=== PATIENT | female | born 1960 | race Caucasian/White ===

== ENCOUNTER 2019-06-24 13:21 | Emergency (ER) | payer BC, SELFPAY ==
[2019-06-24 13:30] VITALS: BP 114/82; PULSE 77; RESP 19; TEMP 37.8; O2SAT 100
--- NOTE | 2019-06-24 14:20 | ED.GENADULT ---
HPI - General Adult General Chief complaint: Abdominal Pain Stated complaint: ABD PAIN/NAUSEA Time Seen by Provider: 06/24/19 14:20 Source: patient and RN notes reviewed Mode of arrival: ambulatory Limitations: no limitations History of Present Illness HPI narrative: 58-year-old female presents with a complaints of epigastric abdominal pain and nausea for 4 weeks. Increase pain over the last 24 hours. Jackie says she was on 20mg of Leflunomide and her PMD believes this caused her pain in which has since been stopped for 2 weeks but pain continues. Zofran and Tums last this morning at 08:00 with little relief. Complains of nausea without vomiting or diarrhea. No cough or shortness of breath. Denies hematuria, dysuria, blood in stool, and constipation. Last BM was this a.m. No fever or chills. Exacerbating factors consist of certain medications and foods. Denies back pain. Denies headache and dizziness. Jackie denies being , postmenopausal. Has an appointment for further evaluation of abdominal pain with PMD on 06/29/19 per Jackie. Some parts of this dictation were generated by voice recognition software and may contain typographical and/or grammatical inaccuracies. Related Data Home Medications Medication Instructions Recorded Confirmed atenolol 25 mg PO DAILY 06/24/19 06/24/19 cholestyramine (with sugar) 4 g PO DIRECTED 06/24/19 06/24/19 clonazepam 1 mg PO DIRECTED 06/24/19 06/24/19 folic acid 1 mg PO DAILY 06/24/19 06/24/19 methotrexate sodium 2.5 mg PO DAILY 06/24/19 06/24/19 ondansetron HCl 4 mg PO DAILY 06/24/19 06/24/19 quetiapine 25 mg PO DAILY 06/24/19 06/24/19 sertraline 100 mg PO DAILY 06/24/19 06/24/19 Allergies Allergy/AdvReac Type Severity Reaction Status Date / Time ephedrine Allergy Unknown EXTREME Unverified 10/31/13 16:31 AGGITATION metoclopramide Allergy Unknown EXTREME Unverified 10/31/13 16:31 AGGITATION prochlorperazine Allergy Unknown EXTREME Unverified 10/31/13 16:31 AGGITATION Review of Systems Review of Systems: Narrative: CONSTITUTIONAL: Denies fever, chills, sweats. EYES: Denies visual changes, redness, discharge. ENT: Denies rhinorrhea, congestion, sore throat, otalgia. CARDIOVASCULAR: Denies chest pain, palpitations, edema. RESPIRATORY: Denies dyspnea, wheezing, cough. GASTROINTESTINAL: Complains of epigastric abdominal pain, nausea. Denies vomiting, diarrhea. GENITOURINARY: Denies dysuria, hematuria, abnormal discharge. SKIN: Denies rash or itching. MUSCULOSKELETAL: Denies acute back pain, joint pain, or myalgia. NEUROLOGIC: Denies numbness or focal weakness. PSYCHIATRIC: Denies anxiety or depression. All other systems reviewed are negative, except as documented in HPI and below. [facility] Past Medical History Medical History (Updated 06/25/19 @ 00:00 by Amy Perez) Arthritis Depression Hypertension Surgical History Surgical History (Updated 06/24/19 @ 14:34 by SOUMYA Jimenez) H/O section History of pubovaginal sling Hx of sinus surgery Family History Family History (Updated 06/24/19 @ 14:34 by SOUMYA Jimenez) Other No significant family history Social History Social History (Updated 06/24/19 @ 14:35 by SOUMYA Jimenez) Smoking status: Never smoker Second hand tobacco smoke exposure: No Alcohol intake: never Substance use: never Living arrangements: with family Occupation/Education: occupation Gender identity (if verbalized by the patient): Female Comments At time of signature, agree with nurse past medical, surgical, social, and family history. There is no relevant family history pertinent to the presenting complaint. Exam Narrative: Exam Narrative: GENERAL: This is a well-nourished, well-developed patient, in no apparent distress. Talks in full sentences without deficits and ambulates with steady gait without dyspnea. HEAD: normocephalic, atraumatic. EYES: PERRL.
[2019-06-24] MEDS: LIDOCAINE HCL 2% VISC SOLN 15 ML UDC PO (14:38)
[2019-06-24] MEDS: KETOROLAC (*BKC) 60 MG/2 ML VIAL IM (14:38)
[2019-06-24] MEDS: ONDANSETRON HCL ODT 4 MG TABLET PO (14:39)
== END 2019-06-24 15:05 | disposition home or self-care (01) ==
PROVIDERS: Emergency Provider Nurse Practitioner Family; PCP Nurse Practitioner Family
DX: R10.13 Epigastric pain (principal); K52.9 Noninfective gastroenteritis and colitis, unspecified; F41.9 Anxiety disorder, unspecified; F32.9 Major depressive disorder, single episode, unspecified; I10 Essential (primary) hypertension
CPT/HCPCS: 96372; 99213; A9270; G0463; J1885

== ENCOUNTER → 2019-07-03 13:21 | Outpatient (CLI) | payer BC, SELFPAY ==
--- NOTE | ~2019-07-03 | CT_ITS ---
EXAMINATION: CT abdomen pelvis w con DATE: 07/03/2019 13:50 INDICATION: Epigastric abdominal pain, left upper quadrant abdominal pain, nausea TECHNIQUE: Computed tomography (CT) of the abdomen and pelvis was performed with 100 cc Omnipaque 350 intravenous contrast. Automated exposure control and iterative reconstruction technique were employe d. Exam dose: 848.56 mGy-cm total exam DLP. COMPARISON: None. FINDINGS: Normal heart size. No pericardial or pleural effusion. The lung bases are clear. The liver, gallbladder, bile ducts, spleen, pancreas, pancreatic duct, and adrenal glands and kidneys are normal. Normal caliber abdominal aorta. No intraperitoneal or retroperitoneal or pelvic mass lesion or adenopathy or ascites. Uterus and adnexal areas and urinary bladder are unremarkable. No bowel obstruction or intraperitoneal free air. IMPRESSION: No significant abnormality Reviewed, dictated and finalized at [facility]. Reviewed, dictated and finalized at [facility]. IMPRESSION: No significant abnormality
[2019-07-03 13:40] LABS: Estimated Glomerular Filt Rate > 60
== END ==
PROVIDERS: PCP Student in an Organized Health Care Education/Training Program; Visit Provider Student in an Organized Health Care Education/Training Program
DX: R10.13 Epigastric pain (principal)
CPT/HCPCS: 36415; 74177; Q9967

== ENCOUNTER 2020-01-31 00:54 | Outpatient (CLI) | payer BC, SELFPAY ==
[2020-01-31 19:19] LABS: SARS-CoV-2 RNA PCR Negative
== END 2020-01-31 00:55 | disposition home or self-care (01) ==
LOC: ANHCOVIDDT 00:55
PROVIDERS: PCP Student in an Organized Health Care Education/Training Program; Visit Provider Internal Medicine Gastroenterology
DX: Z01.812 Encounter for preprocedural laboratory examination (principal); Z20.828 Contact with and (suspected) exposure to other viral communicable diseases
CPT/HCPCS: 87635; C9803; U0003

== ENCOUNTER 2020-02-02 00:43 | Day surgery (SDC) | payer BC, SELFPAY ==
[2020-01-25 14:35] VITALS: BMI 31.3
[2020-02-02 06:50] VITALS: BP 104/73; PULSE 66; RESP 20; TEMP 36.7; O2SAT 97
[2020-02-02] MEDS: LACTATED RINGERS 1,000 ML 150 ML IV CONT (07:01)
--- NOTE | 2020-02-02 07:38 | WPDANESEPPF ---
Anes - Initial Pre Proc Eval Procedure: Operation Date: 02/02/20 08:00 Proposed Procedures p Esophagogastroduodenoscopy - Valentin Gallardo MD Date/Time: 02/02/20 07:38 Surgeon: Valentin Gallardo MD Pre Op Diagnosis: abominal pain Patient Data Age: 59 Gender: F Height: 5 ft 6 in Weight: 93.3 kg Last Vital Signs Temp 98.1 F 02/02/20 06:50 Pulse 66 02/02/20 06:50 Resp 20 02/02/20 06:50 BP 104/73 02/02/20 06:50 Pulse Ox 97 02/02/20 06:50 Allergies Allergy/AdvReac Type Severity Reaction Status Date / Time ephedrine Allergy Unknown EXTREME Unverified 02/02/20 06:49 AGITATION metoclopramide Allergy Unknown EXTREME Unverified 02/02/20 06:49 AGITATION prochlorperazine Allergy Unknown EXTREME Unverified 02/02/20 06:49 AGITATION Home Medications Medication Instructions Recorded Confirmed Type clonazepam 1 mg PO HS 06/24/19 02/02/20 History sertraline 100 mg PO DAILY 06/24/19 01/25/20 History loratadine [Claritin] 10 mg PO DAILY 01/25/20 01/25/20 History Patient hx anesthesia problems: none Family hx anesthesia problems: none PMFSH Past Medical History Medical History (Updated 07/12/19 @ 15:58 by Valentin Gallardo MD) Arthritis Colon cancer screening Depression GERD (gastroesophageal reflux disease) Hypertension Nausea Rheumatoid arthritis Surgical History Surgical History H/O section History of pubovaginal sling Hx of sinus surgery Family History Family History Other No significant family history Social History Social History Smoking status: Never smoker Second hand tobacco smoke exposure: No Alcohol intake: current Substance use: never Living arrangements: with family Gender identity (if verbalized by the patient): Female Spiritual care concerns: No Anes - Eval Final PreProcedure Day of Procedure 02/02/20 07:38 Patient weight: overweight Heart: regular rate and rhythm Lungs: clear to auscultation Airway: Mallampati scale class II Neurological: alert and oriented Last oral intake: >/= 8 hours ASA classification: III Emergent: no Anesthetic plan: proceed Anesthesia type and monitoring: general GIVS and standard monitoring Informed Consent: The patient's anesthetic plan and its attendant risks and benefits were discussed with the patient/family/POA. Questions were solicited and answers provided to the satisfaction of the patient/family/POA.
--- NOTE | 2020-02-02 08:02 | PM.HPGS ---
History of Present Illness History of Present Illness Consent: Risks, benefits, and alternatives have been discussed and questions answered. Patient agrees to proceed with procedure. Chief complaint: abominal pain Narrative: Jackie Esquivel is a 59 year old female with abdominal pain but improved after discontinued her RA meds (leflunomide and MTX), she does not need to take ppi Review of Systems Constitutional: Constitutional: Denies headache(s) and Denies weakness Eyes: Eyes: Denies blurry vision ENT: Reports Normal hearing present, Denies headache(s) and Denies neck pain Cardiovascular: Cardiovascular: Denies chest pain and Denies dyspnea Respiratory: Respiratory: Denies dyspnea Gastrointestinal: Gastrointestinal: Reports no additional gastrointestinal complaints Genitourinary: Genitourinary: Denies dysuria Musculoskeletal: Musculoskeletal: Denies neck pain Integumentary/Breasts: Skin/Breast: Denies dry skin Neurologic: Reports Normal hearing present, Denies headache(s) and Denies weakness Psychiatric: Psychiatric: Denies anxiety Endocrine: Endocrine: Denies change in body appearance Hematologic/Lymphatic: Hematologic/Lymphatic: Denies easy bleeding Allergic/Immunologic: Allergic/Immunologic: Denies urticaria PMF Past Medical History Medical History (Updated 07/12/19 @ 15:58 by Valentin Gallardo MD) Arthritis Colon cancer screening Depression GERD (gastroesophageal reflux disease) Hypertension Nausea Rheumatoid arthritis Surgical History Surgical History H/O section History of pubovaginal sling Hx of sinus surgery Family History Family History Other No significant family history Social History Social History Smoking status: Never smoker Second hand tobacco smoke exposure: No Alcohol intake: current Substance use: never Living arrangements: with family Gender identity (if verbalized by the patient): Female Spiritual care concerns: No Meds Home Medications and Allergies Home Medications Medication Instructions Recorded Confirmed Type clonazepam 1 mg PO HS 06/24/19 02/02/20 History sertraline 100 mg PO DAILY 06/24/19 01/25/20 History loratadine [Claritin] 10 mg PO DAILY 01/25/20 01/25/20 History Allergies Allergy/AdvReac Type Severity Reaction Status Date / Time ephedrine Allergy Unknown EXTREME Unverified 02/02/20 06:49 AGITATION metoclopramide Allergy Unknown EXTREME Unverified 02/02/20 06:49 AGITATION prochlorperazine Allergy Unknown EXTREME Unverified 02/02/20 06:49 AGITATION Vital Signs Vital Signs - 24 hr 02/02/20 06:50 Temperature 98.1 F Pulse Rate 66 Respiratory Rate 20 Blood Pressure 104/73 Pulse Oximetry 97 Exam Const: General: comfortable and no acute distress HENMT: General nose exam: Normal nares present Eyes: General: appearance normal, both eyes and all related structures Neck: Neck: no JVD Resp: Auscultation: clear to auscultation bilaterally Cardio: Rate: regular rate Rhythm: regular rhythm GI: Inspection: non-distended GI Palp: Yes Soft to palpation Skin: General skin exam: normal color Neuro: General: gait normal Speech: normal speech Extrem: General: normal to inspection Psych: Mental Status: mental status grossly normal Assessment and Plan Assessment and plan (1) Nausea: Code(s): R11.0 - Nausea Status: Acute Assessment and Plan: improved but will proceed with egd (2) GERD (gastroesophageal reflux disease): Qualifiers: Esophagitis presence: esophagitis presence not specified Qualified Code(s): K21.9 - Gastro-esophageal reflux disease without esophagitis Code(s): K21.9 - Gastro-esophageal reflux disease without esophagitis Status:
[2020-02-02 08:18] VITALS: BP 96/67; PULSE 61; RESP 16; O2SAT 95
[2020-02-02 08:28] VITALS: BP 109/74; PULSE 61; RESP 20; O2SAT 99
[2020-02-02 08:38] VITALS: BP 104/70; PULSE 56; RESP 20; O2SAT 95
== END 2020-02-02 09:05 | disposition home or self-care (01) ==
PROVIDERS: PCP Student in an Organized Health Care Education/Training Program; Visit Provider Internal Medicine Gastroenterology
PROC: 0DJ08ZZ Inspection of Upper Intestinal Tract, Via Natural or Artificial Opening Endoscopic (ICD-10-PCS; CPT 43235; principal; 2020-02-02 08:00)
DX: K29.50 Unspecified chronic gastritis without bleeding (principal); K21.9 Gastro-esophageal reflux disease without esophagitis; I10 Essential (primary) hypertension; M06.9 Rheumatoid arthritis, unspecified; F32.9 Major depressive disorder, single episode, unspecified
CPT/HCPCS: 43239; 88305; J2704; J7120

== ENCOUNTER → 2022-09-23 16:40 | Outpatient (CLI) | payer SELFPAY ==
--- NOTE | ~2022-09-23 | XR_ITS ---
EXAM: XR hip RT min 2V DATE: 09/23/2022 16:52 HISTORY: Right hip pain . COMPARISON: None available. FINDINGS: Normal mineralization. No fracture or dislocation. No lytic or blastic lesion. Mild degene rative change in the right hip. Scattered pelvic and hip enthesopathy. No erosion or periosteal reyna e. Soft tissues within normal limits. IMPRESSION: Mild right hip osteoarthritic arthritis. Reviewed, dictated and finalized at [facility].
== END ==
PROVIDERS: PCP Nurse Practitioner Family; Visit Provider Chiropractor
DX: M16.11 Unilateral primary osteoarthritis, right hip (principal)
CPT/HCPCS: 73502